=== PATIENT | female | born 1980 | race African-American/Black ===

== ENCOUNTER 2016-04-08 17:35 | Emergency (ER) | payer OTHER, MEDICAID ==
[~2016-04-08] VITALS: Ht 172.7 cm; Wt 105.0 kg
[~2016-04-08 17:35] MED LIST: PANT20 PO; PROT40TA PO; XARE20TA PO
[2016-04-08 17:37] VITALS: BP 132/77; PULSE 87; RESP 15; TEMP 98.4; O2SAT 98
[2016-04-08] MEDS ORDERED: CYCL1TAB29 PO (20:37)
[2016-04-08] MEDS ORDERED: HYDR-3533 PO (20:37)
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
[2016-04-08] MEDS ORDERED: CYCLOBENZAPRINE HCL 10 MG TAB PO ONE (20:45)
[2016-04-08] MEDS ORDERED: ACETAMINOPHEN/HYDROcodone 325 MG/5 MG TAB PO ONE (20:45)
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
[2016-06-22] MEDS ORDERED: PROT40TA PO (15:37)
[2016-06-22] MEDS ORDERED: CLIN150 PO (15:52)
[2016-06-22] MEDS ORDERED: DIFL150T PO (15:52)
[2016-07-20] MEDS ORDERED: OMEP40CA2 PO (17:35)
[2016-07-20] MEDS ORDERED: HYDR-3533 PO (17:36)
[2016-07-20] MEDS ORDERED: ZITH500T PO (17:49)
[2016-07-20] MEDS ORDERED: DIFL150T PO (17:49)
[2016-07-20] MEDS ORDERED: CEFT250I IM (17:49)
[2016-08-22] MEDS ORDERED: XARE20TA PO ×2 (11:45→12:31)
[2016-08-22] MEDS ORDERED: OMEP40CA2 PO (12:36)
[2016-08-22] MEDS ORDERED: ZANT150T2 PO (12:36)
[2016-08-26] MEDS ORDERED: METR500T10 PO (14:17)
[2016-08-26] MEDS ORDERED: CLIN1CAP6 PO (14:57)
== END 2016-04-08 21:43 | disposition home or self-care (01) ==
LOC: NEPB 17:35
DX: S39.012A Strain of muscle, fascia and tendon of lower back, initial encounter (principal); S70.01XA Contusion of right hip, initial encounter; S20.219A Contusion of unspecified front wall of thorax, initial encounter; D57.1 Sickle-cell disease without crisis; Z86.711 Personal history of pulmonary embolism; V43.52XA Car driver injured in collision with other type car in traffic accident, initial encounter; Y93.9 Activity, unspecified; Y92.9 Unspecified place or not applicable; Y99.9 Unspecified external cause status
CPT/HCPCS: 71010; 72100; 73502; 99284